=== PATIENT | female | born 1990 | race Caucasian/White ===

== ENCOUNTER 2018-02-10 07:51 | Emergency (ER) | payer MEDICAID ==
[~2018-02-10] VITALS: Ht 170.2 cm; Wt 66.0 kg
[2018-02-10 07:56] VITALS: BP 107/65
[2018-02-10] MEDS ORDERED: IBUP-1984 PO (08:34)
== END 2018-02-10 08:41 | disposition home or self-care (01) ==
LOC: ER 07:52
DX: S16.1XXA Strain of muscle, fascia and tendon at neck level, initial encounter (principal); S00.83XA Contusion of other part of head, initial encounter; F17.200 Nicotine dependence, unspecified, uncomplicated; F12.90 Cannabis use, unspecified, uncomplicated; Z79.899 Other long term (current) drug therapy; Y04.8XXA Assault by other bodily force, initial encounter; Y93.89 Activity, other specified; Y92.89 Other specified places as the place of occurrence of the external cause; Y99.8 Other external cause status
CPT/HCPCS: 70110; 72040; 99283

== ENCOUNTER 2018-03-02 17:23 | Emergency (ER) | payer MEDICAID ==
[~2018-03-02] VITALS: Ht 170.2 cm; Wt 64.0 kg
[2018-03-02 18:11] LABS: BASOPHILS % (AUTO) 0.3 % (0-1); EOSINOPHILS # (AUTO) 0.1 X10'3 (0-0.9); EOSINOPHILS % (AUTO) 0.9 % (0-6); HEMATOCRIT 39.9 % (35.0-45.0); LYMPHOCYTES # (AUTO) 2.2 X10'3 (1.1-4.8); MEAN CORPUSCULAR HEMOGLOBIN 32.9 PG (27.0-31.0); MEAN CORPUSCULAR HGB CONC 32.5 % (33.0-36.5); MEAN CORPUSCULAR VOLUME 101.3 FL (78-98); MEAN PLATELET VOLUME 7.7 FL (7.4-10.4); MONOCYTES # (AUTO) 0.4 X10'3 (0-0.9); MONOCYTES % (AUTO) 5.5 % (2-12); NEUTROPHILS # (AUTO) 5.2 X10'3 (1.8-7.7); NEUTROPHILS % (AUTO) 65.3 % (42-75); PLATELET COUNT 303 X10'3 (140-440); RED BLOOD COUNT 3.94 X10'6 (4.20-5.60); RED CELL DISTRIBUTION WIDTH 15.2 % (11.5-14.5)
[2018-03-02 18:26] LABS: ALANINE AMINOTRANSFERASE 15 U/L (12-78); ALBUMIN/GLOBULIN RATIO 1.1 (1.1-1.5); ALKALINE PHOSPHATASE 44 IU/L (46-116); ANION GAP 8 (8-16); ASPARTATE AMINO TRANSFERASE 29 U/L (10-37); BILIRUBIN,TOTAL 0.4 MG/DL (0.1-1.0); BLOOD UREA NITROGEN 13 MG/DL (7-18); BUN/CREATININE RATIO 14.8 (6.6-38.0); CALCIUM 8.9 MG/DL (8.5-10.1); CHLORIDE 103 MMOL/L (99-107); CREATININE 0.88 MG/DL (0.40-0.90); GLUCOSE 94 MG/DL (70-104); POTASSIUM 3.7 MMOL/L (3.5-5.1); SODIUM 140 MMOL/L (135-145); TOTAL CARBON DIOXIDE 29.2 MMOL/L (24-32); TOTAL PROTEIN 7.8 G/DL (6.4-8.2); eGFR 75 ML/MIN
[2018-03-02 18:37] LABS: ETHANOL < 0.010 GM/DL (0.0-0.010)
[2018-03-02 19:55] LABS: CLARITY,URINE SLIGHTLY CLOUDY (Clear); COLOR,URINE YELLOW (Yellow); GLUCOSE, URINE NEGATIVE (Neg); KETONES,URINE 15 mg/dl (Neg); LEUKOCYTE ESTERASE ,URINE TRACE (Neg); NITRITES, URINE POSITIVE (Neg); OCCULT BLOOD,URINE TRACE-INTACT (Neg); PROTEIN,URINE NEGATIVE (Neg); URINE AMPHETAMINE SCREEN NEGATIVE (Neg); URINE BARBITUATE SCREEN NEGATIVE (Neg); URINE BENZODIAZEPINES SCREEN NEGATIVE (Neg); URINE CANNABINOID SCREEN POSITIVE (Neg); URINE COCAINE SCREEN NEGATIVE (Neg); URINE METHADONE SCREEN NEGATIVE (Neg); URINE OPIATE SCREEN NEGATIVE (Neg); URINE PHENCYCLIDINE SCREEN NEGATIVE (Neg); UROBILINOGEN,URINE 0.2 E.U/dL (0.2-1.0)
[2018-03-02 20:01] LABS: UA COLLECTION TYPE CLN CATCH MIDSTREAM
[2018-03-02 20:08] LABS: URINE HCG NEGATIVE (NEG)
[2018-03-02 20:09] LABS: BACTERIA,URINE 3+ /HPF (Neg); MUCUS STRANDS MANY /LPF (Neg); RBC,URINE 0-2 /HPF (0-2); SQUAMOUS EPITHELIAL CELL,UR MANY /LPF (FEW); WBC,URINE 0-4 /HPF (0-4)
[2018-03-03] MEDS ORDERED: OLANZapine 5mg rapidly disint. tablet PO PRN (09:20)
[2018-03-03] MEDS ORDERED: citalopram 20mg tablet PO SCH (09:40)
[2018-03-03 10:48] VITALS: BP 90/56
== END 2018-03-03 10:30 ==
LOC: ER 17:23
DX: R45.851 Suicidal ideations (principal); F41.9 Anxiety disorder, unspecified; F31.9 Bipolar disorder, unspecified; F60.9 Personality disorder, unspecified; F43.10 Post-traumatic stress disorder, unspecified; Z56.0 Unemployment, unspecified; Z59.0 Homelessness; Z87.440 Personal history of urinary (tract) infections
CPT/HCPCS: 36415; 80053; 80305; 80320; 81001; 81025; 84443; 85025; 99285

== ENCOUNTER 2018-04-18 17:20 | Emergency (ER) | payer MEDICAID ==
--- NOTE | 2018-04-18 18:22 | NUR ---
pt seen in triage stated did not want to stay on the street [place]. stated not homicidal or suicidal and she called her mom and is coming up from [place] right now and will be here in a few hours. Will place in RAP waiting room until mother arrives. Charge nurse aware. pt showing no signs of distress.
== END 2018-04-18 19:09 | disposition left against medical advice (07) ==
LOC: ER 17:21
DX: Z53.21 Procedure and treatment not carried out due to patient leaving prior to being seen by health care provider (principal)

== ENCOUNTER 2019-11-22 17:27 | Emergency (ER) | payer MEDICAID ==
[~2019-11-22] VITALS: Ht 170.2 cm; Wt 61.8 kg
--- NOTE | 2019-11-22 18:27 | NUR ---
Patient's room entered by civil design technician and the patient was asked her name and date of . The patient became hostile and verbally agressive toward staff. Several attempts made by several different staff members to verbally de-escalate the patient unsuccessfully. Spoke to Dr. Raymond about patient and condition and order for ativan, benadryl, and haldol is ordered.
[2019-11-22] MEDS ORDERED: LORazepam 2 mg/ml vial IM ONE (18:30)
[2019-11-22] MEDS ORDERED: haloperidol lactate 5mg/ml inj IM ONE (18:30)
[2019-11-22] MEDS: diphenhydrAMINE 50 mg/ml inj IM ONE ×2 (18:45→18:49)
[2019-11-22 18:52] LABS: URINE HCG NEGATIVE (NEG)
[2019-11-22 18:57] LABS: CLARITY,URINE CLOUDY (Clear); COLOR,URINE AMBER (Yellow); GLUCOSE, URINE NEGATIVE (Neg); KETONES,URINE TRACE mg/dl (Neg); LEUKOCYTE ESTERASE ,URINE SMALL (Neg); NITRITES, URINE POSITIVE (Neg); OCCULT BLOOD,URINE NEGATIVE (Neg); PH,URINE 7.5 (4.8-8.0); PROTEIN,URINE TRACE mg/dl (Neg)
[2019-11-22 19:00] LABS: UA COLLECTION TYPE CLN CATCH MIDSTREAM
[2019-11-22 19:06] LABS: URINE AMPHETAMINE SCREEN NEGATIVE (Neg); URINE BARBITUATE SCREEN NEGATIVE (Neg); URINE BENZODIAZEPINES SCREEN NEGATIVE (Neg); URINE CANNABINOID SCREEN POSITIVE (Neg); URINE COCAINE SCREEN NEGATIVE (Neg); URINE METHADONE SCREEN NEGATIVE (Neg); URINE OPIATE SCREEN NEGATIVE (Neg); URINE PHENCYCLIDINE SCREEN NEGATIVE (Neg)
[2019-11-22 19:09] LABS: BACTERIA,URINE 4+ /HPF (Neg); RBC,URINE NONE SEEN /HPF (0-2); WBC,URINE 0-4 /HPF (0-4)
[2019-11-22 19:10] LABS: MUCUS STRANDS MANY /LPF (Neg); SQUAMOUS EPITHELIAL CELL,UR MANY /LPF (FEW)
[2019-11-22 19:15] LABS: BASOPHILS % (AUTO) 0.4 % (0-1); EOSINOPHILS # (AUTO) 0.3 X10'3 (0-0.9); EOSINOPHILS % (AUTO) 2.9 % (0-6); HEMATOCRIT 40.7 % (35.0-45.0); HEMOGLOBIN 13.3 g/dl (12.0-16.0); LYMPHOCYTES # (AUTO) 1.8 X10'3 (1.1-4.8); LYMPHOCYTES % (AUTO) 15.9 % (21-51); MEAN CORPUSCULAR HEMOGLOBIN 33.4 PG (27.0-31.0); MEAN CORPUSCULAR HGB CONC 32.6 g/dL (33.0-36.5); MEAN CORPUSCULAR VOLUME 102.2 FL (78-98); MEAN PLATELET VOLUME 8.1 FL (7.4-10.4); MONOCYTES # (AUTO) 0.5 X10'3 (0-0.9); MONOCYTES % (AUTO) 4.1 % (2-12); NEUTROPHILS # (AUTO) 8.5 X10'3 (1.8-7.7); NEUTROPHILS % (AUTO) 76.7 % (42-75); PLATELET COUNT 227 X10'3 (140-440); RED BLOOD COUNT 3.98 X10'6 (4.20-5.60); RED CELL DISTRIBUTION WIDTH 14.8 % (11.5-14.5); WHITE BLOOD COUNT 11.1 X10'3 (4.5-11.0)
[2019-11-22 19:29] LABS: ALANINE AMINOTRANSFERASE 10 U/L (12-78); ALBUMIN 3.6 G/DL (3.4-5.0); ALBUMIN/GLOBULIN RATIO 1.1 (1.1-1.5); ALKALINE PHOSPHATASE 42 IU/L (46-116); ANION GAP 6 (8-16); ASPARTATE AMINO TRANSFERASE 15 U/L (10-37); BILIRUBIN,TOTAL 0.6 MG/DL (0.1-1.0); BLOOD UREA NITROGEN 13 MG/DL (7-18); BUN/CREATININE RATIO 11.7 (6.6-38.0); CALCIUM 8.6 MG/DL (8.5-10.1); CHLORIDE 104 MMOL/L (99-107); CREATININE 1.11 MG/DL (0.40-0.90); GLUCOSE 78 MG/DL (70-104); POTASSIUM 3.5 MMOL/L (3.5-5.1); SODIUM 138 MMOL/L (135-145); TOTAL CARBON DIOXIDE 27.7 MMOL/L (24-32); TOTAL PROTEIN 6.8 G/DL (6.4-8.2); eGFR 57 ML/MIN
[2019-11-22 19:38] LABS: ETHANOL < 0.010 GM/DL (0.0-0.010)
--- NOTE | 2019-11-22 21:53 | NUR ---
Received report from VIVIANE Lal. Pt. ambulated to ED OF from MAIN ED with tech. Pt. denies discomfort/distress.
--- NOTE | 2019-11-22 22:48 | NUR ---
Pt. continues to sleep. Even chest rise observed. Appears comfortable.
--- NOTE | 2019-11-22 23:24 | NUR ---
Pt. continues to sleep. She appears comfortable.
--- NOTE | 2019-11-23 00:55 | NUR ---
Pt. sleeping comfortably. Even chest rise observed.
--- NOTE | 2019-11-23 01:45 | NUR ---
Pt. continues to sleep. She appears comfortable.
--- NOTE | 2019-11-23 03:45 | NUR ---
Pt. asleep. Even respirations apparent. Appears comfortable.
--- NOTE | 2019-11-23 05:37 | NUR ---
VS taken at this time and pt. continous to be on hypotensive (SBP in the 90s x2). Denies dizziness and any other symptoms. MD is aware.
--- NOTE | 2019-11-23 07:00 | NUR ---
pt is resting. no issues at this time
--- NOTE | 2019-11-23 08:34 | NUR ---
lupis sal at bedside evaluating pt ,pt is verbally abusive and loud ,security at standby called by sue [email or web address] primary nurse at this time.
--- NOTE | 2019-11-23 09:09 | NUR ---
pt will be elevated by a second person to see if the aggressive language is repeated
--- NOTE | 2019-11-23 09:56 | NUR ---
Breaking Primary RN, pt is laying on her left side, eyes closed regular breathing observed
--- NOTE | 2019-11-23 10:58 | NUR ---
pt is resting. no issues at this time
[2019-11-23] MEDS ORDERED: cephalexin 250mg capsule PO ONE (11:40)
[2019-11-23] MEDS ORDERED: chlordiazePOXIDE 25mg capsule PO ONE (11:45)
[2019-11-23] MEDS ORDERED: OLANZapine 2.5MG tablet PO ONE (11:45)
[2019-11-23] MEDS ORDERED: OLANZapine 2.5MG tablet PO SCH (11:45)
[2019-11-23] MEDS ORDERED: diphenhydrAMINE 25mg capsule PO ONE (11:45)
--- NOTE | 2019-11-23 12:00 | NUR ---
pt is resting. no issues at this time
--- NOTE | 2019-11-23 13:00 | NUR ---
pt is resting. no issues at this time
--- NOTE | 2019-11-23 14:00 | NUR ---
pt is resting. no issues at this time
--- NOTE | 2019-11-23 15:00 | NUR ---
pt is resting. no issues at this time
--- NOTE | 2019-11-23 16:00 | NUR ---
pt is resting. no issues at this time
--- NOTE | 2019-11-23 17:05 | NUR ---
pt is resting. no issues at this time
[2019-11-23] MEDS: cephalexin 250mg capsule PO SCH (20:38)
--- NOTE | 2019-11-24 07:00 | NUR ---
pt is resting. no issues at this time
[2019-11-24] MEDS: cephalexin 250mg capsule PO SCH ×2 (08:13→21:25)
--- NOTE | 2019-11-24 09:11 | NUR ---
pt is up eating breakfast.
--- NOTE | 2019-11-24 10:00 | NUR ---
pt is resting. no issues at this time
--- NOTE | 2019-11-24 11:00 | NUR ---
pt is resting. no issues at this time
--- NOTE | 2019-11-24 12:00 | NUR ---
pt is resting. no issues at this time
--- NOTE | 2019-11-24 13:00 | NUR ---
pt is resting. no issues at this time
--- NOTE | 2019-11-24 14:00 | NUR ---
pt is yelling at staff. pt is throwing stuff on her tray.
--- NOTE | 2019-11-24 15:00 | NUR ---
pt continues to mean and aggressive towards staff
--- NOTE | 2019-11-24 16:00 | NUR ---
pt is talking to herself. speaking ill towards staff.
--- NOTE | 2019-11-24 17:02 | NUR ---
security is on stand by. pt continues to be hostile
--- NOTE | 2019-11-24 18:30 | NUR ---
ASUMED CARE OF PT CRYING IN BED . VERY TEARFUL IN THE DIRECT LINE OF SIGHT OF NURSING STAFF WILL CONTINUE TO MONITOR AND REASS
[2019-11-24] MEDS ORDERED: nicotine 21mg patch - 24 hr TD ONE (19:20)
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
--- NOTE | 2019-11-24 20:30 | NUR ---
PT IN HER BED AND INTERMITTENTLY CONVERSING WITH PT NEXT TO HER. CONVERSATION APPROPRIATE, PT DISCUSSING HER FRUSTRATIONS WITH [facility]. PT WS REQUESTED TO LOWER HER VOLUME OF HER VOICE AND COMPLIED.
--- NOTE | 2019-11-24 20:30 | NUR ---
PT UP OUT OF BED TO BATHROOM . TALKING TO HERSELF ABOUT HER PROBLEMS . WHEN THIS RECORDER WENT TO BEDSIDE AND ASKED PT , IF THERE IS ANYTHING THAT IS NEEDED PT REPORTS THAT SHE NEEDS A CIGARETTE. PT REPORTS THAT SHE SMOKES 2 BACKS A DAY .
[2019-11-24] MEDS ORDERED: diphenhydrAMINE 25mg capsule PO ONE (21:00)
--- NOTE | 2019-11-24 21:58 | NUR ---
PT SINGING TO HERSELF . RESTING ON HER LEFT SIDE RESP EVEN AND UNLABORED WILL CONTINUE TO MONITOR AND ASSESS
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
[2019-11-24] MEDS ORDERED: quetiapine 100mg tablet PO ONE (23:50)
--- NOTE | 2019-11-25 00:42 | NUR ---
PT SLEEPING SUPINE RESP EVEN AND UNLABORED WILL CONTINUE TO MONITOR AND REASSESS
--- NOTE | 2019-11-25 00:49 | NUR ---
PT UP OUT OF BED TO BATHROOM
--- NOTE | 2019-11-25 01:15 | NUR ---
PT SLEEPING PEACFULLY ON HER RIGHT SIDE / BLANKETS UP TO HER NOSE ,BUT NOT OVER HER HEAD . RESP EVEN AND UNLABORED WILL CONTINUE TO MONITOR AND REASSESS NEEDED
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
--- NOTE | 2019-11-25 04:30 | NUR ---
PT SLEEPING PEACFULLY SUPINE / BLANKETS UP TO HER NOSE ,BUT NOT OVER HER HEAD . RESP EVEN AND UNLABORED WILL CONTINUE TO MONITOR AND REASSESS
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
--- NOTE | 2019-11-25 06:00 | NUR ---
PT IS VERY HOSTILE TOWARDS STAFF. BUT IS YELLING IN HER ROOM. PT WOKE UP OTHER PATIENTS WITH HER LOUD VOICE. PT IS VERY DIFFICULT TO RE-DIRECT.
--- NOTE | 2019-11-25 07:00 | NUR ---
SECURITY CALLED. PT CONTINUES TO TALK TO HERSELF. SPOKE WITH MD ABOUT NEEDING MEDS. ER MD SAID TO CALL [facility] MD FOR MED REC. [facility] CALLED FOR MED REC AWAITING A MD TO COME DOWN AND EVAL PT
--- NOTE | 2019-11-25 08:00 | NUR ---
PT IS USING USING THE PHONE
[2019-11-25] MEDS: cephalexin 250mg capsule PO SCH ×2 (08:24→19:27)
--- NOTE | 2019-11-25 09:00 | NUR ---
PT GOT CLEANED UP IN THE BATHROOM. PT IS LAYING IN HER BED AT THIS TIME AND NO ISSUES
--- NOTE | 2019-11-25 10:00 | NUR ---
PT CONTINUES TO BE HOSTILE TOWARDS STAFF.
--- NOTE | 2019-11-25 11:30 | NUR ---
Patient came up to the nurses station and accuses staff of talking about her (which we weren't). Then patient stated "you know what you're doing! You should wear a shirt saying 'I'm racist'. It's not my fault you can't get a schmitt. If I have to do violence I will!" Patient is agitating other patient's. Patient in room 20 came up to RN and stated that the RN did not do anything wrong and she saw the whole thing. RN advised patient that we all know and I thanked her for saying it. That patient went to sit down. Patient is non-stop talking.
--- NOTE | 2019-11-25 11:30 | NUR ---
ELIZABETH TOOK OVER CARE THE PATIENT. PATIENT HAS BEEN VERY HOSTILE TOWARD RN ALL MORNING.
--- NOTE | 2019-11-25 11:43 | NUR ---
LIZ Walsh in Overflow when patient going off and agitating other patients. Vimal ordered IM medication.
[2019-11-25] MEDS ORDERED: haloperidol lactate 5mg/ml inj IM ONE (11:45)
[2019-11-25] MEDS ORDERED: diphenhydrAMINE 50 mg/ml inj IM ONE (11:45)
[2019-11-25] MEDS ORDERED: LORazepam 2 mg/ml vial IM ONE (11:45)
--- NOTE | 2019-11-25 12:34 | NUR ---
PT MOM CALLED AND PT IS TALKING WITH HER ON THE PHONE. PT CALMLY CONVERSING IN MOM.
--- NOTE | 2019-11-25 12:46 | NUR ---
Patient calm and again speaking to her mom on the phone. Continue to monitor.
--- NOTE | 2019-11-25 14:01 | NUR ---
Patient sleeping supine. No distress observed.
--- NOTE | 2019-11-25 16:20 | NUR ---
Patien sleeping supine. No distress observed. Continue to monitor.
--- NOTE | 2019-11-25 17:45 | NUR ---
Patient continues to sleep. No distress observed. Continue to monitor.
--- NOTE | 2019-11-25 19:00 | NUR ---
Client resting in bed on her right side. Blankets are pulled over her head. Resp even.
--- NOTE | 2019-11-25 20:00 | NUR ---
Client is awake and talkative. Requested "something warm" to put over her injection site (client had three IM injections for agitation during day shift). Client requested and given cranberry juice. Reports that s/s of baldder infection have improved. Accepted meds.
[2019-11-25] MEDS ORDERED: acetaminophen 325mg tablet PO PRN (20:15)
[2019-11-25] MEDS: traZODone 50mg tablet PO PRN ×2 (20:45→23:09)
--- NOTE | 2019-11-25 21:30 | NUR ---
Client became anrgy and beligerent. Argued with NA and then began reading the bible loudly. Client began to disrupt other patients.
[2019-11-25] MEDS ORDERED: QUEtiapine 25mg tablet PO ONE (22:10)
[2019-11-25] MEDS ORDERED: quetiapine 100mg tablet PO ONE (22:15)
--- NOTE | 2019-11-25 22:15 | NUR ---
Client continued to berate NA and stated, "God isn't pleased with you!" Read the Bible very loud. This RN attempted to redirect client, unsuccessfully. Spoke with Renee HILL and received order for 200 mg Seroquel Tab PO. Client lowered her voice but continued to read the bible. Clients nicotine patch removed.
--- NOTE | 2019-11-26 00:36 | NUR ---
Resting in bed, eye's closed. Resp even.
--- NOTE | 2019-11-26 02:00 | NUR ---
Lying on left side, eye's closed. Resp even.
--- NOTE | 2019-11-26 04:00 | NUR ---
Resting, eye's closed. Resp even.
--- NOTE | 2019-11-26 05:53 | NUR ---
Client is resting, eye's closed. Resp even.
[2019-11-26 06:01] VITALS: BP 102/61
--- NOTE | 2019-11-26 07:00 | NUR ---
Patient was up earlier stating that it's cold. RN made coffee and gave her a cup. Patient asked for warm clothes. RN gave patient a small sweatshirt from the back. Patient is not laying back down. Continue to monitor.
--- NOTE | 2019-11-26 07:30 | NUR ---
Patient given coffee. Patient c/o it's too cold. Patient agitated. Continue to monitor.
[2019-11-26] MEDS ORDERED: LORazepam 1 MG tablet PO ONE (07:40)
[2019-11-26] MEDS: cephalexin 250mg capsule PO SCH (07:51)
[2019-11-26] MEDS ORDERED: nicotine 7mg patch - 24hr TD SCH (08:00)
--- NOTE | 2019-11-26 08:50 | NUR ---
DIANELYS Boyce re-evaluating patient. Patient tearful
--- NOTE | 2019-11-26 10:16 | NUR ---
Patient is being released and taken to [facility] via cab. Austen is awaiting to here for possible placement into the [facility]. Continue to monitor.
--- NOTE | 2019-11-26 11:25 | NUR ---
Change of plan. The patient will be evaluated by the [facility] at 1300. Patient needs to stay here due to if accepted patient will need an CXR to r/o TB for acceptence to the [facility]. Patient is aware of plan and is agreeable. Patient has been calm and cooperative. Continue to monitor.
--- NOTE | 2019-11-26 12:50 | NUR ---
[facility] evaluating patient in her room. Patient calm and tearful. Continue to monitor.
--- NOTE | 2019-11-26 13:20 | NUR ---
Patient eating lunch. No distress observed. Continue to monitor.
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
--- NOTE | 2019-11-26 15:38 | NUR ---
Patient resting in bed listening to music. Patient is not longer on a hold and is pending for the [facility] to pick her up. Patient calm and in no distress. Continue to monitor.
== END 2019-11-26 15:50 ==
LOC: ER 17:59
DX: R45.851 Suicidal ideations (principal); F12.90 Cannabis use, unspecified, uncomplicated; F31.9 Bipolar disorder, unspecified; Z59.0 Homelessness; Z56.0 Unemployment, unspecified
CPT/HCPCS: 36415; 71046; 80053; 80305; 80320; 81001; 81025; 84443; 85025; 96372; 99285; J1630; J2060; Q0163; J1200

== ENCOUNTER 2019-11-29 20:31 | Emergency (ER) | payer MEDICAID ==
[~2019-11-29] VITALS: Ht 170.2 cm; Wt 61.8 kg
--- NOTE | 2019-11-29 21:36 | NUR ---
PER TRESTLEMAN PT TOLD HER THAT THE BLOOD PRESURE CUFF, SPO2 MONITOR AND ID BRACELET WERE "CUTTING OFF ALL THE BLOOD TO HER ARM" SO SHE REMOVED THEM ALL. Addendum: 11/29/19 at 2137 by MANJEET THE PATIENT REMOVED HER OWN MONITORING EQUIPMENT
[2019-11-29 22:13] LABS: URINE HCG NEGATIVE (NEG)
[2019-11-29 22:19] LABS: BASOPHILS # (AUTO) 0.1 X10'3 (0-0.2); BASOPHILS % (AUTO) 1.2 % (0-1); EOSINOPHILS # (AUTO) 0.5 X10'3 (0-0.9); EOSINOPHILS % (AUTO) 5.7 % (0-6); HEMATOCRIT 39.5 % (35.0-45.0); HEMOGLOBIN 13.5 g/dl (12.0-16.0); LYMPHOCYTES # (AUTO) 2.6 X10'3 (1.1-4.8); LYMPHOCYTES % (AUTO) 27.2 % (21-51); MEAN CORPUSCULAR HEMOGLOBIN 34.6 PG (27.0-31.0); MEAN CORPUSCULAR HGB CONC 34.1 g/dL (33.0-36.5); MEAN CORPUSCULAR VOLUME 101.6 FL (78-98); MEAN PLATELET VOLUME 8.2 FL (7.4-10.4); MONOCYTES # (AUTO) 1.1 X10'3 (0-0.9); MONOCYTES % (AUTO) 11.1 % (2-12); NEUTROPHILS # (AUTO) 5.2 X10'3 (1.8-7.7); NEUTROPHILS % (AUTO) 54.8 % (42-75); PLATELET COUNT 273 X10'3 (140-440); RED BLOOD COUNT 3.89 X10'6 (4.20-5.60); RED CELL DISTRIBUTION WIDTH 14.1 % (11.5-14.5); WHITE BLOOD COUNT 9.5 X10'3 (4.5-11.0)
--- NOTE | 2019-11-29 22:20 | NUR ---
Arrived outside to assess patient and document information. Pt had moved herself to laying down on floor because she reportedly felt as if she would fall out of the chair. Patient escalated when being asked assessment questions because she was "tired of being asked". RN explained the necessity of assessment questions. Pt continued escalation and Patient then began stating that she wanted to run out into traffic. Patient again escalated when rn said goodbye to employee leaving ED due to not receiving the care she thought necessary. Pt appears angry with treatment outside due to covid precautions. Tearful and raising voice during assessment. pt reports history of suicidal desires. Charge nurse Ruddy made aware of pt conditions and need for safe placement inside of main ed away from ambulance bay, and bed to lay down on.
--- NOTE | 2019-11-29 22:22 | NUR ---
WHEN ASSESSING PT, SHE REPEATEDLY REPORTED THAT SHE WANTED TO RUN INTO TRAFFIC. LIZ STARR AWARE OF PT CONDITION. CHARGE NURSE NOTIFIED AND PT MOVED INTO MAIN ED. PT ON ISOLATION PRECAUTIONS DUE TO PENDING COVID TEST.
[2019-11-29] MEDS ORDERED: LORazepam 2 mg/ml vial IM ONE (22:30)
[2019-11-29] MEDS ORDERED: diphenhydrAMINE 50 mg/ml inj IM ONE (22:30)
[2019-11-29] MEDS ORDERED: haloperidol lactate 5mg/ml inj IM ONE (22:30)
--- NOTE | 2019-11-29 22:30 | NUR ---
pt was moved to ER bed 15 (a clean room) upon entering the room she stated she wanted a "clean sheet" - she was told that it was clean but she insisted on it being changed anyway. She opened the cupboard to get a new sheet and I told her to please not get into the cupboard since she was on isolation precautions. She then starts screaming and yelling at me and additional staff. Security was called to bedside and she was given a chance to calm down. she initially was able to calm herself and staff just waiting outside room. she then (with no one engaging her) started screaming again and will not settle down. Provider has ordered medications for patient. The [facility] was contacted who states that pt was there on a voluntary admit and that they would take the patient back if she wishes to return. They also state that the patient was verbally aggressive with them today as well.
[2019-11-29] MEDS ORDERED: LORazepam 1 MG tablet PO ONE (22:45)
[2019-11-29] MEDS ORDERED: OLANZapine 5mg rapidly disint. tablet PO ONE (22:45)
--- NOTE | 2019-11-29 23:01 | NUR ---
I contacted the [facility] and it appears that all patients entering their facility are tested. She was swabbed on 11/26/19 and the results are currently pending. She was not on any isolation precautions while at the [facility] for 3 days and they took her temperature twice a day. She had no documented temperatures while at their facility and there is no record of her complaining of sore throat or swollen lymph nodes while she was there. She did complain of fever to them, but as I stated, they did not record any fevers in the chart. I contacted Deisy Rushing MD with infectious disease and she stated that it would be ok to take patient off isolation precautions since she was not displaying any s\s of covid at this time and since the swab was done as an entry precaution. She stated that if the patient was to be accepted and have a bed assignment and need a rapid covid we could recontact her at that time.
[2019-11-29 23:04] LABS: ALANINE AMINOTRANSFERASE 7 U/L (12-78); ALBUMIN 3.5 G/DL (3.4-5.0); ALBUMIN/GLOBULIN RATIO 0.8 (1.1-1.5); ALKALINE PHOSPHATASE 49 IU/L (46-116); ANION GAP 6 (8-16); ASPARTATE AMINO TRANSFERASE 26 U/L (10-37); BILIRUBIN,TOTAL 0.3 MG/DL (0.1-1.0); BLOOD UREA NITROGEN 11 MG/DL (7-18); BUN/CREATININE RATIO 12.1 (6.6-38.0); CALCIUM 9.1 MG/DL (8.5-10.1); CHLORIDE 101 MMOL/L (99-107); CREATININE 0.91 MG/DL (0.40-0.90); GLUCOSE 94 MG/DL (70-104); POTASSIUM 3.8 MMOL/L (3.5-5.1); SODIUM 136 MMOL/L (135-145); TOTAL CARBON DIOXIDE 29.4 MMOL/L (24-32); TOTAL PROTEIN 7.9 G/DL (6.4-8.2); eGFR 87 ML/MIN
--- NOTE | 2019-11-29 23:06 | NUR ---
Froy Hough PA at bedside to talk with pt, pt said she is recording everything, her cell phone is in her hand, pt would like to go [facility] but has been placed on ER psych hold, pt thinks everyone is talking and laughing at her
[2019-11-29 23:09] LABS: ETHANOL < 0.010 GM/DL (0.0-0.010)
--- NOTE | 2019-11-29 23:23 | NUR ---
pt compliant with giving phone and other belongings, refused to sign clothing sheet,
[2019-11-29] MEDS ORDERED: ketorolac tromethamine 15mg/ml inj. IM ONE (23:25)
[2019-11-29 23:27] LABS: CLARITY,URINE CLOUDY (Clear); COLOR,URINE YELLOW (Yellow); GLUCOSE, URINE NEGATIVE (Neg); KETONES,URINE TRACE mg/dl (Neg); LEUKOCYTE ESTERASE ,URINE TRACE (Neg); NITRITES, URINE NEGATIVE (Neg); OCCULT BLOOD,URINE LARGE (Neg); PROTEIN,URINE 30 mg/dl (Neg)
[2019-11-29 23:33] LABS: UA COLLECTION TYPE CLN CATCH MIDSTREAM
[2019-11-29 23:34] LABS: WBC,URINE 0-4 /HPF (0-4)
[2019-11-29 23:35] LABS: BACTERIA,URINE FEW /HPF (Neg); RBC,URINE 50-100 /HPF (0-2); SQUAMOUS EPITHELIAL CELL,UR FEW /LPF (FEW)
[2019-11-29 23:41] LABS: URINE AMPHETAMINE SCREEN NEGATIVE (Neg); URINE BARBITUATE SCREEN NEGATIVE (Neg); URINE BENZODIAZEPINES SCREEN POSITIVE (Neg); URINE CANNABINOID SCREEN POSITIVE (Neg); URINE COCAINE SCREEN NEGATIVE (Neg); URINE METHADONE SCREEN NEGATIVE (Neg); URINE OPIATE SCREEN NEGATIVE (Neg); URINE PHENCYCLIDINE SCREEN NEGATIVE (Neg)
[2019-11-29] MEDS ORDERED: medroxyprogesterone acet. 2.5mg tablet PO STA (23:47)
[2019-11-29] MEDS ORDERED: MEDR10TA PO (23:53)
--- NOTE | 2019-11-30 00:14 | NUR ---
Patient Arrived to Overflow and immmediatly began accusing staff of taking her gatorade from room 15. She was verbally deescalated and provided a new gatorade. She is now resting and looks to be attmepting to go to sleep.
--- NOTE | 2019-11-30 00:30 | NUR ---
PATIENT'S PACKET WAS SENT TO [facility].
--- NOTE | 2019-11-30 03:19 | NUR ---
Patient has been sleeping quietly without disturbance.
[2019-11-30 05:30] VITALS: BP 91/62
--- NOTE | 2019-11-30 07:15 | NUR ---
pt requested for more blanket ,blanket provider to the pt ,no distress noted.will cont to monitor.
--- NOTE | 2019-11-30 08:20 | NUR ---
pt resting in her lft lateral position,no distress noted.rr even and non labored.
--- NOTE | 2019-11-30 09:13 | NUR ---
[facility] lapeler luann at bedside to evaluate ,security for standby.
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
--- NOTE | 2019-11-30 09:41 | NUR ---
pt continously talking to herself saying that she is dealing with her negative thoughts,lupis reeves stated that if she can lower her voice jenna taht he can talk to other pt,pt got upset .still talking to herself but in low voice,lupis lagunassy talking to [facility] for placement.
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
[2019-11-30] MEDS ORDERED: LORazepam 2 mg/ml vial IM ONE ×2 (11:20→11:25)
[2019-11-30] MEDS ORDERED: haloperidol lactate 5mg/ml inj IM ONE ×2 (11:20→11:25)
[2019-11-30] MEDS ORDERED: diphenhydrAMINE 50 mg/ml inj IM ONE ×2 (11:20→11:25)
--- NOTE | 2019-11-30 11:29 | NUR ---
pt refused to take inj ordered by the provider ,security dealing with pt,all the overflow staff at the nurses station,[facility] and 4 corporate security officer .pt want to leave the unit , aware going to discharge the pt,d/c paperwork given ,pt signed but not paying attention to instruction,paperwork in the pt belonging.pt escorted out of overflow by campus security officer.
== END 2019-11-30 11:35 | disposition home or self-care (01) ==
LOC: ER 20:31
DX: R45.851 Suicidal ideations (principal); R45.1 Restlessness and agitation; N93.9 Abnormal uterine and vaginal bleeding, unspecified; F31.9 Bipolar disorder, unspecified; F17.200 Nicotine dependence, unspecified, uncomplicated; Z72.89 Other problems related to lifestyle; Z59.0 Homelessness; Z56.0 Unemployment, unspecified; Z79.899 Other long term (current) drug therapy
CPT/HCPCS: 36415; 80053; 80305; 80320; 81001; 81025; 85025; 87088; 96372; 99284; J1885; 99285

== ENCOUNTER 2021-04-21 04:34 | Emergency (ER) | payer MEDICARE, MEDICAID ==
[~2021-04-21] VITALS: Ht 170.2 cm; Wt 52.0 kg
[~2021-04-21 04:34] MED LIST: MEDR10TA PO
[2021-04-21 05:49] LABS: BASOPHILS % (AUTO) 0.5 % (0-1); EOSINOPHILS # (AUTO) 0.1 X10'3 (0-0.9); EOSINOPHILS % (AUTO) 0.7 % (0-6); HEMATOCRIT 33.5 % (35.0-45.0); HEMOGLOBIN 11.3 g/dl (12.0-16.0); LYMPHOCYTES # (AUTO) 1.6 X10'3 (1.1-4.8); LYMPHOCYTES % (AUTO) 18.5 % (21-51); MEAN CORPUSCULAR HEMOGLOBIN 34.5 PG (27.0-31.0); MEAN CORPUSCULAR HGB CONC 33.8 g/dL (33.0-36.5); MEAN CORPUSCULAR VOLUME 101.9 FL (78-98); MONOCYTES # (AUTO) 0.9 X10'3 (0-0.9); MONOCYTES % (AUTO) 10.1 % (2-12); NEUTROPHILS % (AUTO) 70.2 % (42-75); PLATELET COUNT 293 X10'3 (140-440); RED BLOOD COUNT 3.29 X10'6 (4.20-5.60); RED CELL DISTRIBUTION WIDTH 15.1 % (11.5-14.5); WHITE BLOOD COUNT 8.5 X10'3 (4.5-11.0)
[2021-04-21 05:59] LABS: ALANINE AMINOTRANSFERASE 15 U/L (12-78); ALBUMIN 3.9 G/DL (3.4-5.0); ALBUMIN/GLOBULIN RATIO 1.2 (1.1-1.5); ALKALINE PHOSPHATASE 51 IU/L (46-116); ANION GAP 12 (8-16); ASPARTATE AMINO TRANSFERASE 22 U/L (10-37); BILIRUBIN,TOTAL 0.6 MG/DL (0.1-1.0); BLOOD UREA NITROGEN 10 MG/DL (7-18); CALCIUM 8.8 MG/DL (8.5-10.1); CHLORIDE 101 MMOL/L (99-107); CREATININE 0.91 MG/DL (0.40-0.90); GLUCOSE 100 MG/DL (70-104); POTASSIUM 3.4 MMOL/L (3.5-5.1); SODIUM 138 MMOL/L (135-145); TOTAL CARBON DIOXIDE 25.5 MMOL/L (24-32); TOTAL PROTEIN 7.2 G/DL (6.4-8.2); eGFR 86 ML/MIN
[2021-04-21 06:02] LABS: CLARITY,URINE CLEAR (Clear); COLOR,URINE YELLOW (Yellow); GLUCOSE, URINE NEGATIVE (Neg); KETONES,URINE TRACE mg/dl (Neg); LEUKOCYTE ESTERASE ,URINE NEGATIVE (Neg); NITRITES, URINE NEGATIVE (Neg); OCCULT BLOOD,URINE SMALL (Neg); PH,URINE 6.5 (4.8-8.0); PROTEIN,URINE NEGATIVE (Neg); UROBILINOGEN,URINE 0.2 E.U/dL (0.2-1.0)
[2021-04-21 06:05] LABS: UA COLLECTION TYPE CLN CATCH MIDSTREAM; URINE HCG NEGATIVE (NEG)
[2021-04-21 06:07] LABS: URINE AMPHETAMINE SCREEN NEGATIVE (Neg); URINE BARBITUATE SCREEN NEGATIVE (Neg); URINE BENZODIAZEPINES SCREEN NEGATIVE (Neg); URINE CANNABINOID SCREEN POSITIVE (Neg); URINE COCAINE SCREEN NEGATIVE (Neg); URINE METHADONE SCREEN NEGATIVE (Neg); URINE OPIATE SCREEN NEGATIVE (Neg); URINE PHENCYCLIDINE SCREEN NEGATIVE (Neg)
[2021-04-21 06:08] LABS: BACTERIA,URINE FEW /HPF (Neg); MUCUS STRANDS FEW /LPF (Neg); SQUAMOUS EPITHELIAL CELL,UR FEW /LPF (FEW); WBC,URINE 0-4 /HPF (0-4)
[2021-04-21 06:26] LABS: ETHANOL < 0.010 GM/DL (0.0-0.010)
--- NOTE | 2021-04-21 12:59 | NUR ---
Per Mani PAN, Patient talking to self and patient states that the voices in her head are telling her she needs medications. Patient requesting Flexeril, celexa, and risperal. Unsure whether patient is currently taking, RN will find out from patients pharmacy and add to med rec. Dr. Goodman notified regarding outburst of patient and will order medication to help with aggitation. Mani PAN aware discussion with provider.
[2021-04-21] MEDS ORDERED: LORazepam 1 MG tablet PO ONE (13:00)
--- NOTE | 2021-04-21 13:00 | NUR ---
Pt having loud conversations with "the narcissist" and wants him to go away. Pt says her whole body is reacting to the narcissist and she needs a flexeril. Michelle PAN charge nurse called and asked for a medication. Pt given ativan PO. Pt continues to rant. Security at bedside.
--- NOTE | 2021-04-21 13:31 | NUR ---
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 I pushed them out myself!" Appears anxious and agitated, notified awaiting orders
--- NOTE | 2021-04-21 13:33 | NUR ---
Diann ROCA, called regarding patients aggitation again, stating that she was arguing and being aggressive with neighbor. Spoke with Dr. Goodman regarding this and he place order for Zyprexa IM. Diann ROCA aware of new order.
[2021-04-21] MEDS ORDERED: OLANZapine **IM** 10 mg inj. IM ONE (13:35)
--- NOTE | 2021-04-21 14:29 | NUR ---
IM Zyprexa given as ordered. Patient continues to yell at staff and insist that she is a kay and is running for governor. Finally able to redirect to her bed where patient becomes more calm and is resting quietly at this time
--- NOTE | 2021-04-21 15:53 | NUR ---
Patient is resting quietly in bed at this time
--- NOTE | 2021-04-21 17:26 | NUR ---
Patient continues to rest quietly in bed
--- NOTE | 2021-04-21 18:25 | NUR ---
Patient resting quietly in bed at this time. Became agitated when awakened for vitals but returned to resting once left alone. No s/sx acute distress
--- NOTE | 2021-04-21 18:30 | NUR ---
ASSUMED PATIENT CARE. PATIENT IS NOTED TO BE TALKING TO SELF. REPORTED LABILE BEHAVIOR PRIOR TO SHIFT CHANGE.
--- NOTE | 2021-04-21 19:37 | NUR ---
PATIENT COMPLAINS OF HIP PAIN AND PROBLEMS SLEEPING. SHE STATES A HISTORY OF TAKING TRAZADONE FOR SLEEP. PATIENT EXHIBITS SOME LINEAR THOUGHT. THIS COUNSELOR AT LAW WILL SPEAK WITH A PROVIDER FOR SLEEP MEDICATIONS AND SOMETHING FOR PATIENTS PAIN.
--- NOTE | 2021-04-21 21:12 | NUR ---
PATIENT SLEEPING IN A LOW FOWLERS POSITION.
[2021-04-21] MEDS ORDERED: ibuprofen tablet 400 MG TABLET PO ONE (22:00)
[2021-04-21] MEDS ORDERED: ibuprofen 200mg tablet PO ONE (22:05)
[2021-04-21] MEDS ORDERED: traZODone 50mg tablet PO ONE (22:10)
--- NOTE | 2021-04-21 23:34 | NUR ---
PATIENT SLEEPING QUIETLY NOW. NO DISTRESS. FREQUENT ROUNDING FOR PATIENT SAFETY.
--- NOTE | 2021-04-22 03:31 | NUR ---
PATIENT IS SLEEPING IN A SUPINE POSITION, SHE HAS BLANKETS PULLED OVER HER HEAD.
--- NOTE | 2021-04-22 03:46 | NUR ---
PATIENT AWOKE, SHE EXPERIENCES GENERALIZED HIP PAIN. THE PATIENT WAS GIVEN A PILLOW FOR SUPPORT AND REPOSITIONED. PATIENT DENIES NEED FOR ADDITIONAL PAIN MEDS.
--- NOTE | 2021-04-22 05:21 | NUR ---
PATIENT SLEEPING QUIETLY. NO DISTRESS.
--- NOTE | 2021-04-22 07:00 | NUR ---
Received Pt in bed sleeping w/o distress at the change of shift.
--- NOTE | 2021-04-22 09:00 | NUR ---
Pt woke and was irritable about being moved when she was sleeping. Pt loud and aggressive at times. Pt ate breakfast and calmed. Pt remains labile and argumentative.
--- NOTE | 2021-04-22 11:30 | NUR ---
Called [facility] in [facility] and confirmed Pt's meds. Spoke with Dr. Goodman and meds ordered. Pt napped and woke angry and yelling at staff about temp. of ER and accusing staff of contolling her. Security called and Pt remained angry and hyperverbal but did return to her room and calmed.
[2021-04-22] MEDS ORDERED: ibuprofen tablet 400 MG TABLET PO ONE (12:55)
[2021-04-22] MEDS ORDERED: ibuprofen 200mg tablet PO ONE (13:05)
--- NOTE | 2021-04-22 13:30 | NUR ---
Pt ate lunch and calmed a bit, although still mumbling complaints and irritable. Pt remains in bed.
[2021-04-22] MEDS: LORazepam 0.5 MG tablet PO PRN (14:34)
--- NOTE | 2021-04-22 15:30 | NUR ---
Pt given Ativan 2mg at her request and is more cooperative and pleasant. Pt interacting well with staff and other Pt's.
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
[2021-04-22] MEDS ORDERED: traZODone 50mg tablet PO SCH (20:00)
[2021-04-22] MEDS: risperiDONE 0.5mg tablet PO SCH (20:25)
--- NOTE | 2021-04-22 20:41 | NUR ---
PATIENTS BEHAVIOR HAS ESCELATED. SHE IS YELLING AND CUSSING. 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 ATIVAN 2 MG GIVEN PO. PRIOR TO THIS EVENT THE PATIENT WAS COMPLIANT WITH HER EVENING MEDICATIONS.
--- NOTE | 2021-04-22 21:40 | NUR ---
PATIENT SLEEPING QUIETLY IN A SUPINE POSITION. NO DISTRESS.
--- NOTE | 2021-04-22 23:10 | NUR ---
PATIENT SLEEPS QUIETLY. NO DISTRESS.
--- NOTE | 2021-04-23 00:47 | NUR ---
PATIENT SLEEPS ON HER LEFT SIDE, SHE HAS SELF REPOSITIONED IN BED. NO DISTRESS.
--- NOTE | 2021-04-23 02:13 | NUR ---
PATIENT IS SLEEPING QUIETLY, NO DISTRESS.
--- NOTE | 2021-04-23 03:30 | NUR ---
PATIENT IS SLEEPING, SHE HAS COVERED HERSELF UP WITH BLANKET. NO DISTRESS NOTED.
--- NOTE | 2021-04-23 04:39 | NUR ---
PATIENT SLEEPING QUIETLY. NO DISTRESS. FREQUENT ROUNDING FOR PATIENT SAFETY.
[2021-04-23] MEDS: LORazepam 0.5 MG tablet PO PRN (05:15)
--- NOTE | 2021-04-23 05:31 | NUR ---
PATIENT SLEEPS QUIETLY.
[2021-04-23] MEDS ORDERED: LORazepam 1 MG tablet PO ONE (06:50)
--- NOTE | 2021-04-23 07:31 | NUR ---
Pt was administered Ativan 2mg. 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 Security called for stand-by. "If you call security I will show come unglued."
--- NOTE | 2021-04-23 07:50 | NUR ---
Pt came out of her room asking for "another waffle." Another patient said she could have hers. Pt became agitated and wouldn't return to room when account underwriter explained that due to infection control food cannot be passed between patient's. Institute Director became tangential stating "so you mean those waffles are going to be thrown away!" "That's the problem with you'all white people!" Pt refused to go back to her room and continued to overtalk talk account underwriter. Institute Director had received PRN Ativan 2 mg around 0730. Due to pt's escalation and agitation safety was becoming an issue, so account underwriter left to speak with provider for additional medication.
[2021-04-23] MEDS: risperiDONE 0.5mg tablet PO SCH (07:55)
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
[2021-04-23] MEDS ORDERED: CITALOpram 10mg tablet PO SCH (08:00)
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
[2021-04-23] MEDS ORDERED: LORazepam 2 mg/ml vial IM ONE (08:05)
[2021-04-23] MEDS ORDERED: diphenhydrAMINE 50 mg/ml inj IM ONE (08:05)
[2021-04-23] MEDS ORDERED: haloperidol lactate 5mg/ml inj IM ONE (08:05)
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
--- NOTE | 2021-04-23 09:39 | NUR ---
Pt sleeping comfortably, respirations even and unlabored.
--- NOTE | 2021-04-23 10:00 | NUR ---
Pt awake sitting in room talking through the curtain while software writer is talking with another patient. Pt stating "all the want is for us to be lazy zombies."
--- NOTE | 2021-04-23 10:10 | NUR ---
Patient given decaf coffee per request from mental health case finisher.
--- NOTE | 2021-04-23 10:15 | NUR ---
Pt continues to be tangential, coming out of her room. Pt refused any PRN's.
--- NOTE | 2021-04-23 11:00 | NUR ---
DISCHARGE NOTE: PT WAS DISCHARGED FROM UNIT AT 1030. PT WAS REEVALUATED BY [facility] AND PT DID NOT MEET CRITERIA FOR 5150. PT LEFT WITH ALL PERSONAL BELONGINGS AND RESOURCE INFORMATION. PT IS ABLE TO RECEIVE EMERGENCY [facility] AT [facility]. PT DENIES ALL PSYCHOTIC SYMPTOMS.
[2021-04-23 11:29] VITALS: BP 99/65
== END 2021-04-23 11:34 | disposition home or self-care (01) ==
LOC: ER 04:35
DX: R44.1 Visual hallucinations (principal); Z20.822 Contact with and (suspected) exposure to COVID-19; R44.0 Auditory hallucinations; F60.3 Borderline personality disorder; F31.9 Bipolar disorder, unspecified; F17.200 Nicotine dependence, unspecified, uncomplicated; Z87.440 Personal history of urinary (tract) infections; Z72.89 Other problems related to lifestyle; Z56.0 Unemployment, unspecified; Z59.00 Homelessness unspecified; Z79.899 Other long term (current) drug therapy
CPT/HCPCS: 36415; 80053; 80305; 80320; 81001; 81025; 84443; 85025; 87635; 96372; 99284; C9803; J3490